=== PATIENT | male | born 1955 | race Caucasian/White ===

== ENCOUNTER 2020-08-02 08:42 | Outpatient (CLI) | payer MEDICARE, OTHER, SELFPAY ==
--- NOTE | 2020-08-02 14:44 | NEURO_ITS ---
PATIENT NUMBER: [id number] IMPRESSION: # Complains of hand director of oncology weakness. # Right ulnar neuropathy across the elbow. # Mild evolving Carpal tunnel syndrome bilaterally. # Needle exam abnormal in right 1st Dorsal Interosseus muscle indicative of denervation in ulnar nerve distribution. Nerve Conduction Studies Anti Sensory Summary Table Stim Site NR Peak (ms) P-T Amp (?V) Site1 Site2 Delta-P (ms) Dist (cm) Brett (m/s) Left Median Anti Sensory (2-3nd Digit) Wrist 3.5 42.5 Wrist 2-3nd Digit 3.5 14.0 40 Wrist 3.5 39.5 Wrist 2-3nd Digit 3.5 14.0 40 Right Median Anti Sensory (2-3nd Digit) Wrist 3.9 2.7 Wrist 2-3nd Digit 3.9 14.0 36 Wrist 4.0 9.1 Wrist 2-3nd Digit 3.9 14.0 36 Left Radial Anti Sensory (Base 1st Digit) Wrist 2.3 16.3 Wrist Base 1st Digit 2.3 0.0 Right Radial Anti Sensory (Base 1st Digit) Wrist 2.9 7.8 Wrist Base 1st Digit 2.9 0.0 Left Ulnar Anti Sensory (5th Digit) Wrist 2.6 54.5 Wrist 5th Digit 2.6 14.0 54 Right Ulnar Anti Sensory (5th Digit) Wrist 2.7 45.2 Wrist 5th Digit 2.7 14.0 52 Motor Summary Table Stim Site NR Onset (ms) O-P Amp (mV) Site1 Site2 Delta-0 (ms) Dist (cm) Brett (m/s) Left Median Motor (Abd Poll Brev) Wrist 3.8 1.7 Elbow Wrist 5.7 31.0 54 Elbow 9.5 1.2 Right Median Motor (Abd Poll Brev) Wrist 3.8 0.8 Elbow Wrist 5.8 30.0 52 Elbow 9.6 0.7 Left Ulnar Motor (Abd Dig Minimi) Wrist 2.5 3.7 A Elbow Wrist 5.1 32.0 63 A Elbow 7.6 3.6 Right Ulnar Motor (Abd Dig Minimi) Wrist 2.7 4.4 A Elbow Wrist 6.1 30.0 49 A Elbow 8.8 3.0 B Elbow Wrist 3.9 22.0 56 B Elbow 6.6 3.1 F Wave Studies NR F-Lat (ms) L-R F-Lat (ms) Left Median (Mrkrs) (Abd Poll Brev) 29.69 0.52 Right Median (Mrkrs) (Abd Poll Brev) 29.17 0.52 Left Ulnar (Mrkrs) (Abd Dig Min) 30.94 4.74 Right Ulnar (Mrkrs) (Abd Dig Min) 26.19 4.74 EMG Side Muscle Nerve Root Ins Act Fibs Amp Dur Recrt Comment Right 1stDorInt Ulnar C8-T1 Nml Nml Nml Nml Nml Right Ext Indicis Radial (Post Int) C7-8 Nml Nml Nml Nml Nml Right Ext Digitorum Radial (Post Int) C7-8 Nml Nml Nml Nml Nml Right BrachioRad Radial C5-6 Nml Nml Nml Nml Nml Right PronatorTeres Median C6-7 Nml Nml Nml Nml Nml Right Abd Poll Brev Median C8-T1 Nml Nml Nml Nml Nml Left 1stDorInt Ulnar C8-T1 Nml Nml Nml Nml Nml Left Ext Indicis Radial (Post Int) C7-8 Nml Nml Nml Nml Nml Left Ext Digitorum Radial (Post Int) C7-8 Nml Nml Nml Nml Nml Left BrachioRad Radial C5-6 Nml Nml Nml Nml Nml Left PronatorTeres Median C6-7 Nml Nml Nml Nml Nml Left Abd Poll Brev Median C8-T1 Nml Nml Nml Nml Nml MTDD
== END 2020-08-02 08:43 | disposition home or self-care (01) ==
PROVIDERS: PCP Family Medicine; Visit Provider Family Medicine
DX: G56.03 Carpal tunnel syndrome, bilateral upper limbs (principal); G56.21 Lesion of ulnar nerve, right upper limb
CPT/HCPCS: 95886; 95911

== ENCOUNTER 2024-09-07 00:21 | Day surgery (SDC) | payer MEDICARE, SELFPAY ==
[2024-08-17 11:59] VITALS: BMI 26.4
--- OUTSIDE RECORDS SUMMARY | 2024-09-07 00:24 | XMS_ITS | Clinical Summary ---
Author Organization [facility] Address [address] [place] [id number] Care Team Providers Care Medical Billing Supervisor Name Role Phone Tony Ortega MD Primary Care Provider [phone] [phone] Allergies No known active allergies Medications irbesartan-hydr oCHLOROthiazide (AVALIDE) 300-12.5 mg per tabletIndicatio ns:hypertension Take 1 tablet by mouth every morning Active amLODIPine (NORVASC) 10 mg tabletIndicatio ns:hypertension Take 10 mg by mouth every morning Active cyanocobalamin (Vitamin B-12) 1,000 mcg tabletIndicatio ns:Prevention of Vitamin B12 Deficiency Take 1,000 mcg by mouth every morning Active multivitamin with minerals tablet Take 1 tablet by mouth every morning Active aspirin 325 mg tabletIndicatio ns:prevention of thrombosis Take 1 tablet (325 mg total) by mouth 2 (two) times a day for 14 days 28 tablet 0 Active docusate sodium (COLACE) 100 mg capsuleIndicati ons:constipatio n Take 1 capsule (100 mg total) by mouth 2 (two) times a day Hold for loose stools 40 capsule 1 0 Active oxyCODONE (ROXICODONE) 5 mg immediate release tabletIndicatio ns:Pain Take 1 tablet (5 mg total) by mouth every 4 (four) hours as needed (Pain) 40 tablet 0 Active amoxicillin (amoxicillin) 500 mg tablet/capsule TAKE FOUR CAPSULES BY MOUTH ONE HOUR PRIOR TO APPOINTMENT 12 tablet/capsu le 0 Active Active Problems Problem Noted Date Diagnosed Date Hypertension 03/03/2019 Risk factors for obstructive sleep apnea 020 Rotator cuff arthropathy of left shoulder 2018 Overview (01/19/2019): Added automatically from request for surgery [id number] Surgical History Surgery Date Site/Laterality Comments REVERSE TOTAL SHOULDER ARTHROPLASTY 03/02/2017 - 018 Right HYDROCELE EXCISION / REPAIR 03/02/2013 - 03/01/2014 HERNIA REPAIR x 2 COLONOSCOPY Medical History Medical History Date Comments Nephrolithiasis Seasonal allergies Vitamin B12 deficiency Colon polyps Hydrocele Family History Medical History Relation Name Comments Hypertension Brother Family history of hypertension - (Added by TW Conv) Relation Name Status Comments Brother Social History Tobacco Use Types Packs/Day Years Used Date Smoking Tobacco: Never Smokeless Tobacco: Never Alcohol Use Standard Drinks/Week Comments Yes 0 (1 standard drink = 0.6 oz pur e alcohol) occasionally Sex and Gender Information Value Date Recorded Sex Assigned at Not on file Legal Sex Male 10:57 AM STONE TRIMMER Gender Identity Not on file Sexual Orientation Not on file Obstetrics History Last Filed Vital Signs Vital Sign Reading Time Taken Comments Blood Pressure 131/89 03/04/2019 9:29 AM STONE TRIMMER Pulse 75 03/04/2019 9:29 AM STONE TRIMMER Temperature 36.7 C (98.1 F) 03/04/2019 7:07 AM STONE TRIMMER Respiratory Rate 16 03/04/2019 7:07 AM STONE TRIMMER Oxygen Saturation 100% 03/04/2019 9:29 AM STONE TRIMMER Inhaled Oxygen Concentration - - Weight 82.4 kg (181 lb 10.5 oz) 03/03/2019 2:10 PM STONE TRIMMER Height 175.3 cm (5' 9.02) 03/03/2019 2:10 PM CS T Body Mass Index 26.81 03/03/2019 2:10 PM STONE TRIMMER Plan of Treatment Not on file Medical Devices Implanted Type Area Ratchet Setter Device Identifier Shelf Expiration Date Model / Serial / Lot [employer] [id number] 25mm Reverse Shoulder Baseplate Glenoid Trabecular Metal - [id number] Implanted:Qty: 1 on 03/03/2019 by Az Aguila MD at [facility] Left: Shoulder [employer] [id number] 09/29/2028 [id number] / / [id number] Comp[employer] [id number] Ncb Anatomical Shoulder 4.5mm 42mm Inverse Reverse Lock Self Tap - [id number] Implanted:Qty: 1 on 03/03/2019 by Az Aguila MD at [facility] Left: Shoulder [employer] [id number] 10/31/2023 [id number] / / [id number] [employer] .03949.042 Ncb Anatomical Shoulder 4.5mm 42mm Inverse Reverse Lock Self Tap - [id number] Implanted:Qty: 1 on 03/03/2019 by Az Aguila MD at [facility] Left: Shoulder [employer] [id number] 10/31/2023.61358.042 / / [id number] [employer] [id number] 36mm Reverse Shoulder Sphere Glenoid Trabecular Metal - [id number] Implanted:Qty: 1 on 03/03/2019 by Az Aguila MD at [facility] Left: Shoulder [employer] [id number] 09/29/2028 [id number] / / [id number] [employer] [id number] 14mm 130mm Shoulder Stem Humeral Trabecular Metal Tivanium - [id number] Implanted:Qty: 1 on 03/03/2019 by Az Aguila MD at [facility] Left: Shoulder [employer] [id number] 07/30/2025 [id number] / / [id number] Comp[employer] [id number] 36mm H+3mm Reverse Humerus 7d Standard Liner Shoulder Trabecular - [id number] Implanted:Qty: 1 on 03/03/2019 by Az Aguila MD at [facility] Left: Shoulder [employer] [id number] 11/29/2026 [id number] / / [id number] Explanted Type Area Ratchet Setter Device Identifier Shelf Expiration Date Model / Serial / Lot [employer] [id number] [place] 3/32in 9in 2 Trocar Pin Fixation Nonsterile - [id number] Explanted:Qty: 1 on 03/03/2019 by Az Aguila MD at [facility] Left: Shoulder [employer] [id number] S / / Insurance [facility] MEDIC[facility] [id number] [facility] Advance Directives For more information, please contact: [phone] * Full Code (Latest Code Status on File) Date Activated Date Inactivated Comments 03/03/2019 2:21 PM 03/04/2019 4:04 PM Care Teams Medical Billing Supervisor Relationship Specialty Start Date End Date Tony Ortega MD [id number] [address] PCP - General 04/09/17
--- OUTSIDE RECORDS SUMMARY | 2024-09-07 00:24 | XMS_ITS | Clinical Summary ---
Author Organization [facility] Address [address] [place] [id number] Care Team Providers Care Mortgage Specialist Name Role Phone Unavailable Primary Care Provider Unavailabl e Social History Tobacco Use Types Packs/Day Years Used Date Smoking Tobacco: Never Assessed Sex and Gender Information Value Date Recorded Sex Assigned at Not on file Legal Sex Male 5:20 PM CDT Gender Identity Not on file Sexual Orientation Not on file Plan of Treatment Health Maintenance Due Date Last Done Comments Colorectal Cancer Screening Colonoscopy (10 Years) 1955 Hepatitis C 1972 DTaP, Tdap and Td Vaccines ( 1 - Tdap) 1973 Pneumococcal Vaccine: 50+ Ye ars (1 of 1 - PCV) 2004 Zoster Vaccines (1 of 2) 2004 COVID-19 Vaccine ( - 2023-2 5 season) 2023 RSV Immunization or 60+ Years (1 - 1-dose 75+ series) 2029 Meningococcal B Vaccine Aged Out No l onger eligible based on patient's age to complete this topic Meningococcal Vaccine Aged Out No jose l sree eligible based on patient's age to complete this topic RSV Immunizations Under 20 Months Aged Out No longer eligible based on patient's age to complete this topic
--- OUTSIDE RECORDS SUMMARY | 2024-09-07 00:24 | XMS_ITS | Referral Summary ---
Author Organization [facility] Address [address] [place] [address] Care Team Providers Care Hand Flatwork Finisher Name Role Phone Tony Ortega MD Primary Care Provider [phone] [phone] Allergies No known active allergies Medications irbesartan-hydr [...] (01/19/2019): Added automatically from request for surgery [id number] Social History Tobacco Use Types Packs/Day Years Used Date Smoking Tobacco: Never Smokeless Tobacco: Never Alcohol Use Standard Drinks/Week Comments Yes 0 (1 standard drink = 0.6 oz pur e alcohol) occasionally Sex and Gender Information Value Date Recorded Sex Assigned at Not on file Legal Sex Male 10:57 AM HEEL DIPPER Gender Identity Not on file Sexual Orientation Not on file Last Filed Vital Signs Vital Sign Reading Time Taken Comments Blood Pressure 131/89 03/04/2019 9:29 AM HEEL DIPPER Pulse 75 03/04/2019 9:29 AM HEEL DIPPER Temperature 36.7 C (98.1 F) 03/04/2019 7:07 AM HEEL DIPPER Respiratory Rate 16 03/04/2019 7:07 AM HEEL DIPPER Oxygen Saturation 100% 03/04/2019 9:29 AM HEEL DIPPER Inhaled Oxygen Concentration - - Weight 82.4 kg (181 lb 10.5 oz) 03/03/2019 2:10 PM HEEL DIPPER Height 175.3 cm (5' 9.02) 03/03/2019 2:10 PM CS T Body Mass Index 26.81 03/03/2019 2:10 PM HEEL DIPPER Plan of Treatment Not on file Medical Devices Implanted Type Area Hand Trucker Device Identifier Shelf Expiration Date Model / Serial / Lot [employer] [id number] 25mm Reverse Shoulder Baseplate Glenoid Trabecular Metal - [id number] Implanted:Qty: 1 on 03/03/2019 by Az Aguila MD at [facility] Left: Shoulder [employer] [id number] 09/29/2028 [id number] / / [id number] [employer] [id number] Ncb Anatomical Shoulder 4.5mm 42mm Inverse Reverse Lock Self Tap - [id number] Implanted:Qty: 1 on 03/03/2019 by Az Aguila MD at [facility] Left: Shoulder [employer] [id number] 10/31/2023 [id number] / / [id number] [employer] .042 Ncb Anatomical Shoulder 4.5mm 42mm Inverse Reverse Lock Self Tap - [id number] Implanted:Qty: 1 on 03/03/2019 by Az Aguila MD at [facility] Left: Shoulder [employer] [id number] 10/31/2023.69586.042 / / [id number] [employer] [id number] 36mm Reverse Shoulder Sphere Glenoid Trabecular Metal - [id number] Implanted:Qty: 1 on 03/03/2019 by Az Aguila MD at [facility] Left: Shoulder [employer] [id number] 09/29/2028 [id number] / / [id number] Comp[employer] [id number] 14mm 130mm Shoulder Stem Humeral Trabecular Metal Tivanium - [id number] Implanted:Qty: 1 on 03/03/2019 by Az Aguila MD at [facility] Left: Shoulder [employer] [id number] 07/30/2025 [id number] / / [id number] [employer] [id number] 36mm H+3mm Reverse Humerus 7d Standard Liner Shoulder Trabecular - [id number] Implanted:Qty: 1 on 03/03/2019 by Az Aguila MD at [facility] Left: Shoulder [employer] [id number] 11/29/2026 [id number] / / [id number] Explanted Type Area Hand Trucker Device Identifier Shelf Expiration Date Model / Serial / Lot [employer] [id number] Jaky 3/32in 9in 2 Trocar Pin Fixation Nonsterile - [id number] Explanted:Qty: 1 on 03/03/2019 by Az Aguila MD at [facility] Left: Shoulder [employer] [id number] S / / Insurance [facility] [id number] [facility] Advance Directives For more information, please contact: [phone] * Full Code (Latest Code Status on File) Date Activated Date Inactivated Comments 03/03/2019 2:21 PM 03/04/2019 4:04 PM Care Teams Hand Flatwork Finisher Relationship Specialty Start Date End Date Tony Ortega MD [address] [address] PCP - General 04/09/17
[2024-09-07 06:28] VITALS: BP 132/81; PULSE 86; RESP 19; TEMP 36.5; O2SAT 98
[2024-09-07] MEDS: LACTATED RINGERS 1,000 ML 150 ML IV CONT (06:44)
--- NOTE | 2024-09-07 07:06 | P.PNAN_ITS ---
Anes - Initial Pre Proc Eval Procedure: Operation Date: 09/07/24 07:30 Proposed Procedures p Screening Colonoscopy - Zach Best MD Date/Time: 09/07/24 07:06 Surgeon: Zach Best MD Pre Op Diagnosis: Encounter for screening for malignant neoplasm of Patient Data Age: 69 Gender: M Height: 1.75 m Weight: 81.8 kg Last Vital Signs Temp 97.7 F 09/07/24 06:28 Pulse 86 09/07/24 06:28 Resp 19 09/07/24 06:28 BP 132/81 09/07/24 06:28 Pulse Ox 98 09/07/24 06:28 O2 Del Method Room Air 09/07/24 06:28 Allergies Allergy/AdvReac Type Severity Reaction Status Date / Time No Known Allergies Allergy Verified 09/07/24 06:26 Home Medications ?Medication ?Instructions ?Recorded ?Confirmed ?Type cyanocobalamin (vitamin B-12) 1,000 mcg PO DAILY 01/05/19 09/07/24 History 1,000 mcg capsule sfaopalb-rmgrtvlx-iesjw acid 400 1 tablet PO DAILY 01/05/19 09/07/24 History mcg-vit K 20 mcg-lycop 300 mcg tablet (One-A-Day Men's Multivitamin) amlodipine 5 mg tablet 5 mg PO DAILY #90 tabs 07/12/24 09/07/24 Rx irbesartan 300 1 tablet PO DAILY #90 tabs 07/12/24 09/07/24 Rx mg-hydrochlorothiazide 12.5 mg tablet Patient hx anesthesia problems: none Family hx anesthesia problems: none Results Review: All pre-operative results and documents have been reviewed as part of the pre- operative evaluation. [facility] Past Medical History Medical History Herpes zoster (~08/2023) right L2 dermatome with mild symptoms BMI 28.0-28.9,adult At low risk for fall Impacted cerumen of both ears Chronic pain of right knee Colon cancer screening normal colonoscopy around 2014 with recheck in 10 years Encounter for prostate cancer screening PSA is normal at 1.23 on 01/29/2022. The PSA 1.38 on 03/20/2023. PSA 1.27 on 05/20/2024. Overweight (BMI 25.0-29.9) Basal cell carcinoma (~08/31/20) left anterior neck with shave biopsy on 08/31/2020 by toy consultant BMI 29.0-29.9,adult Carpal tunnel syndrome on both sides (07/17/20) mild bilateral carpal tunnel syndrome and right ulnar neuropathy at the elbow on EMG and nerve conduction study on 07/17/2020 Mixed hyperlipidemia Cholesterol 184, triglycerides 233, HDL 70, LDL 82 on 01/22/2021. Total cholesterol 186, triglycerides 155, HDL 67, LDL 94 on 01/29/2022. Total cholesterol 176, triglycerides 156, HDL 72, LDL 79 with ratio 2.4 on 03/20/2023. Cholesterol 179, HDL 61, triglycerides 93, LDL 83 with ratio of 2.4 on 05/20/2024. Abnormal fasting glucose glucose 92 With hemoglobin A1c 5.1 on 01/22/2021. Glucose 89 with hemoglobin A1c 5.0 on 01/29/2022. glucose 103 with hemoglobin A1c 4.9 on 03/20/2023. Fasting glucose 95 with hemoglobin A1c 5.2 and urine microalbumin ratio of 24 with GFR 97 on 05/20/2024. Seborrheic keratosis Elevated liver enzymes GGT 81, AST 29, ALT 27 on 01/22/2021. GGT 72, AST 25, ALT 26 on 01/29/2022. AST 29, ALT 26 on 03/20/2023. Chronic left shoulder pain resolved with total shoulder replacement Encounter for wellness examination in adult Family History Family History Mother Patient's mother is Family history of malignant neoplasm, Onset Age: 83 Father Family history of malignant neoplasm, Onset Age: 76 Social History Social History Smoking status: Never smoker Alcohol intake: current Drinks per week: 6 Substance use: never Substance use type: does not use Lack of Transportation: No Lack of Food: Never True Current Housing: I Have Housing Concerned About Future Housing: No Difficulty Paying Gas/Electric Bills: No Difficulty Paying for Meds: No Currently Unemployed: No Education: Trade/Vocational Certificate Difficulty w/ Childcare or Family Care: No Anes - Eval Final PreProcedure Day of Procedure 09/07/24 07:06 Patient weight: normal Lungs: normal air movement Airway: Mallampati scale class II Neurological: alert and oriented Last oral intake: >/= 8 hours ASA classification: II Emergent: no Anesthetic plan: proceed Anesthesia type and monitoring: general GIVS and standard monitoring Results Review: All pre-operative results and documents have been reviewed as part of the pre- operative evaluation. HTN. Informed Consent: The patient's anesthetic plan and its attendant risks and benefits were discussed with the patient/family/POA. Questions were solicited and answers provided to the satisfaction of the patient/family/POA.
--- NOTE | 2024-09-07 07:30 | P.HP_ITS ---
History of Present Illness History of Present Illness Consent: Risks, benefits, and alternatives have been discussed and questions answered. Patient agrees to proceed with procedure. Chief complaint: Encounter for screening for malignant neoplasm of Narrative: Rubén Croft is a 69 year old male here for screening colonoscopy, last one 10 years ago Review of Systems Review of Systems: All systems reviewed & are unremarkable except as noted in HPI and below PMFSH Past Medical History Medical History Herpes zoster (~08/2023) right L2 dermatome with mild symptoms BMI 28.0-28.9,adult At low risk for fall Impacted cerumen of both ears Chronic pain of right knee Colon cancer screening normal colonoscopy around 2014 with recheck in 10 years Encounter for prostate cancer screening PSA is normal at 1.23 on 01/29/2022. The PSA 1.38 on 03/20/2023. PSA 1.27 on 05/20/2024. Overweight (BMI 25.0-29.9) Basal cell carcinoma (~08/31/20) left anterior neck with shave biopsy on 08/31/2020 by draw machine operator BMI 29.0-29.9,adult Carpal tunnel syndrome on both sides (07/17/20) mild bilateral carpal tunnel syndrome and right ulnar neuropathy at the elbow on EMG and nerve conduction study on 07/17/2020 Mixed hyperlipidemia Cholesterol 184, triglycerides 233, HDL 70, LDL 82 on 01/22/2021. Total cholesterol 186, triglycerides 155, HDL 67, LDL 94 on 01/29/2022. Total cholesterol 176, triglycerides 156, HDL 72, LDL 79 with ratio 2.4 on 03/20/2023. Cholesterol 179, HDL 61, triglycerides 93, LDL 83 with ratio of 2.4 on 05/20/2024. Abnormal fasting glucose glucose 92 With hemoglobin A1c 5.1 on 01/22/2021. Glucose 89 with hemoglobin A1c 5.0 on 01/29/2022. glucose 103 with hemoglobin A1c 4.9 on 03/20/2023. Fasting glucose 95 with hemoglobin A1c 5.2 and urine microalbumin ratio of 24 with GFR 97 on 05/20/2024. Seborrheic keratosis Elevated liver enzymes GGT 81, AST 29, ALT 27 on 01/22/2021. GGT 72, AST 25, ALT 26 on 01/29/2022. AST 29, ALT 26 on 03/20/2023. Chronic left shoulder pain resolved with total shoulder replacement Encounter for wellness examination in adult Family History Family History Mother Patient's mother is Family history of malignant neoplasm, Onset Age: 83 Father Family history of malignant neoplasm, Onset Age: 76 Social History Social History Smoking status: Never smoker Alcohol intake: current Drinks per week: 6 Substance use: never Substance use type: does not use Lack of Transportation: No Lack of Food: Never True Current Housing: I Have Housing Concerned About Future Housing: No Difficulty Paying Gas/Electric Bills: No Difficulty Paying for Meds: No Currently Unemployed: No Education: Trade/Vocational Certificate Difficulty w/ Childcare or Family Care: No Meds Home Medications and Allergies Home Medications ?Medication ?Instructions ?Recorded ?Confirmed ?Type cyanocobalamin (vitamin B-12) 1,000 mcg PO DAILY 01/05/19 09/07/24 History 1,000 mcg capsule krondjcw-mlfdewdj-hwhxb acid 400 1 tablet PO DAILY 01/05/19 09/07/24 History mcg-vit K 20 mcg-lycop 300 mcg tablet (One-A-Day Men's Multivitamin) amlodipine 5 mg tablet 5 mg PO DAILY #90 tabs 07/12/24 09/07/24 Rx irbesartan 300 1 tablet PO DAILY #90 tabs 07/12/24 09/07/24 Rx mg-hydrochlorothiazide 12.5 mg tablet Allergies Allergy/AdvReac Type Severity Reaction Status Date / Time No Known Allergies Allergy Verified 09/07/24 06:26 Vital Signs Vital Signs - 24 hr 09/07/24 06:28 Temperature 97.7 F Pulse Rate 86 Respiratory Rate 19 Blood Pressure 132/81 Pulse Oximetry 98 Oxygen Delivery Room Air Exam Const: General: comfortable and no acute distress HENMT: Face/Nose/Sinus: Normal nares present Eyes: General: appearance normal, both eyes and all related structures Neck: Neck: no JVD Resp: Auscultation: clear to auscultation bilaterally Cardio: Rate: regular rate Rhythm: regular rhythm GI: Inspection: non-distended GI Palp: Yes Soft to palpation Skin: General skin exam: normal color Neuro: General: gait normal Speech: normal speech Extrem: General: normal to inspection Psych: Mental Status: mental status grossly normal Assessment and Plan Assessment and plan (1) Colon cancer screening: Code(s): Z12.11 - Encounter for screening for malignant neoplasm of colon Status: Acute Assessment and Plan: colonoscopy
[2024-09-07 07:45] VITALS: BP 98/62; PULSE 77; RESP 20; O2SAT 97
--- NOTE | 2024-09-07 07:46 | S_PTH ---
PATIENT: Rubén Croft LOC: [facility]IL Dial#:[id number] AGE/SX: 69/M ROOM: RE09/07/[address]: Zach Best MD : 1955 BED: DIS: 09/07/2024 SPEC #: [id number] RECD: 09/07/24 10:07 STATUS: HYUN BUTLER #: [id number] DESTINEY: 09/07/24 07:[address]: Zach Best DEPT: [facility] Surgical RECD BY: Ysabel Reid ENTERED: 09/07/24 10:07 SP TYPE: Surgical OTHR DR: Tony Ortega MD Tissues: A - Colon Polypectomy B - Colon Polypectomy Procedures: Hematoxylin and Eosin Stain Gross and Microscopic Level 4
[2024-09-07 07:55] VITALS: BP 111/69; PULSE 68; RESP 20; O2SAT 97
[2024-09-07 08:05] VITALS: BP 128/82; PULSE 68; RESP 20; O2SAT 97
== END 2024-09-07 08:16 | disposition home or self-care (01) ==
PROVIDERS: PCP Family Medicine; Referring Provider Family Medicine; Visit Provider Internal Medicine Gastroenterology
PROC: 0DJD8ZZ Inspection of Lower Intestinal Tract, Via Natural or Artificial Opening Endoscopic (ICD-10-PCS; CPT 45378; principal; 2024-09-07 07:30)
DX: Z12.11 Encounter for screening for malignant neoplasm of colon (principal); D12.2 Benign neoplasm of ascending colon; D12.0 Benign neoplasm of cecum; K64.8 Other hemorrhoids; K57.30 Diverticulosis of large intestine without perforation or abscess without bleeding; E78.2 Mixed hyperlipidemia; G56.03 Carpal tunnel syndrome, bilateral upper limbs; L57.0 Actinic keratosis; G89.29 Other chronic pain; M25.561 Pain in right knee; M25.512 Pain in left shoulder; Z85.828 Personal history of other malignant neoplasm of skin; Z80.9 Family history of malignant neoplasm, unspecified
CPT/HCPCS: 45385; 88305; J2704; J7120